=== PATIENT | female | born 1980 | race Caucasian/White ===

== ENCOUNTER 2021-08-31 08:21 | Outpatient (CLI) | payer BC | END 2021-08-31 08:22 | disposition home or self-care (01) | LOC: CSHMAMMO 08:21 | PROVIDERS: ATTEND Obstetrics & Gynecology | DX: Z12.31 Encounter for screening mammogram for malignant neoplasm of breast (principal); N63.10 Unspecified lump in the right breast, unspecified quadrant; Z80.3 Family history of malignant neoplasm of breast | CPT/HCPCS: 77063; 77067 ==

== ENCOUNTER 2021-09-06 12:51 | Outpatient (CLI) | payer BC | END 2021-09-06 12:52 | disposition home or self-care (01) | LOC: CSHMAMMO 12:51 | PROVIDERS: ATTEND Obstetrics & Gynecology | DX: N63.15 Unspecified lump in the right breast, overlapping quadrants (principal); N60.01 Solitary cyst of right breast | CPT/HCPCS: G0279 ==

== ENCOUNTER 2024-01-21 08:20 | Outpatient (CLI) | payer BC | END 2024-01-21 08:21 | disposition home or self-care (01) | LOC: CSHSLEEP 08:20 | PROVIDERS: ATTEND Internal Medicine | DX: G47.10 Hypersomnia, unspecified (principal); R53.83 Other fatigue; F32.A Depression, unspecified; F41.9 Anxiety disorder, unspecified; E66.9 Obesity, unspecified; Z68.30 Body mass index [BMI] 30.0-30.9, adult; R06.83 Snoring; G47.33 Obstructive sleep apnea (adult) (pediatric) | CPT/HCPCS: 95800 ==